=== PATIENT | male | born 1965 | race Caucasian/White ===

== ENCOUNTER → 2017-02-28 | Outpatient (CLI) | payer BC ==
--- NOTE | 2017-02-28 20:39 | CONS ---
DATE OF CONSULTATION: 02/28/2017 51-year-old gentleman has been evaluated in the sleep center for obstructive sleep apnea-hypopnea syndrome. CONSULTATION/NEW PATIENT EVALUATION HISTORY OF PRESENT ILLNESS/SLEEP-WAKE EVALUATION: Patient has been diagnosed with obstructive sleep apnea about 5 years ago, and at that time on treatment with BiPAP changed his weight down and up and present about 20 pounds more than 5 years ago. Recently developed some problem related to usage of BiPAP machine, which could be described as ( ) with the machine. He wakes up from sleep up to 2 times. Sometimes he has episodes nocturia. SLEEP SCHEDULE: His sleep schedule from about a midnight until 5 in the morning working days and on weekends schedule is about the same. FALLING ASLEEP: No problem with falling asleep. Sawyer Sleepiness Scale increased to 10. DURING SLEEP: DURING THE DAY/WAKE STATE: PAST MEDICAL HISTORY: Occasional back pain. PAST SURGICAL HISTORY: Bilateral heel surgery, right knee surgery, the right rotator cuff surgery. MEDICATIONS: None. SOCIAL HISTORY: Negative for smoking. Alcohol consumption occasional. REVIEW OF SYSTEMS: Difficulties to use BiPAP. No fevers. No double vision. No recent chest pain. No shortness of breath. No abdominal pain. No bleeding episodes. No blood in urine. No seizure episodes. FAMILY HISTORY: Heart problems, sleep apnea, diabetes. PHYSICAL EXAMINATION: During physical examination, gentleman without distress. VITAL SIGNS: BP 125/73, HR 62, RR 16. Height 5 feet 9, weight 269. BMI 39.7. Neck 17-1/4 inches in circumference. Temp is 98.4. Oxygen saturation room air 95%. HEENT: Oropharynx extremely low position of soft palate. NECK: Supple. No JVD. Thyroid is not palpable. LUNGS: Clear to percussion and to auscultation. Good air exchange. No wheezing or rhonchi. HEART: S1, S2 regular. No murmurs, gallops or rubs. ABDOMEN: Obese. Soft and nontender. Bowel sounds are present. No organomegaly appreciated. EXTREMITIES: No clubbing or cyanosis. REPRESENTATIVE: Awake, alert, and oriented x3. Cranial nerves 2 to 7 intact. There is no fasciculation or atrophy noted. No focal deficits observed. IMPRESSION: 1. Obstructive sleep apnea-hypopnea syndrome diagnosed about 5 years ago. The patient is on treatment with BiPAP, but has difficulties to use BiPAP equipment secondary to desynchronization with the machine. He also changed significantly since previous titration. 2. Obesity, body mass index of 39.7. 3. Status post bilateral heel study. 4. Status post right knee surgery. 5. Status post right rotator cuff surgery. PLAN: 1. CPAP BiPAP titration for re-evaluation of effective pressure at the present time. 2. Losing weight. 3. Sleep hygiene with regular time in bed for at least 8 hours. 4. No driving if feeling any sleepiness. Thank you very much for referring this patient for consultation. Sincerely, Petey Robles MD, PhD, FAASM. Diplomat of [employer], Sleep Medicine Board by [employer] [employer] Mobile Lounge Driver [facility] [place]
== END ==
LOC: SLEEP 16:55
PROVIDERS: ATTEND Internal Medicine
DX: G47.33 Obstructive sleep apnea (adult) (pediatric) (principal); E66.9 Obesity, unspecified; Z68.39 Body mass index [BMI] 39.0-39.9, adult; Z98.890 Other specified postprocedural states
CPT/HCPCS: 99211

== ENCOUNTER → 2019-02-18 | Outpatient (CLI) | payer BC ==
--- NOTE | 2019-02-18 17:49 | PN ---
PROGRESS NOTE DATE OF SERVICE: 02/18/2019 53-year-old gentleman who has been followed in the Sleep Center for treatment of obstructive sleep apnea-hypopnea syndrome. The patient successfully continues to use his BiPAP equipment every night for the whole night. No snoring with the machine. Bradford Sleepiness Scale today is 9. I checked his BiPAP unit. BiPAP pressure 11/7 cm of water. Usage is 100% of the night and 26/30 nights more than 4 hours for the last month. Average usage 5.5 hours per night. Leak is 16 L/minute which is borderline. Apnea-hypopnea index is only 1.3, which is totally perfect. MEDICATIONS: None. PHYSICAL EXAM: Patient in no distress. BP 137/85, HR 72, RR 16, height 5 feet 9 inches, weight 267 pounds. Body mass index 38.8, temperature 97.8, oxygen saturation at room air 94%. HEENT: Oropharynx low position of soft palate, Mallampati 3-4. NECK Supple, no JVD. Thyroid is not palpable. LUNGS Clear to percussion and to auscultation. Good air exchange. No wheezing or rhonchi. HEART S1, S2 regular. No murmurs, gallops, or rubs. ABDOMEN: Obese. Soft and nontender. Bowel sounds are present. No organomegaly appreciated. EXTREMITIES No clubbing or cyanosis. ASSIGNMENT MANAGER Awake, alert, and oriented X3. Cranial nerves 2 to 7 intact. There is no fasciculation or atrophy. noted. No focal deficits observed. IMPRESSION: 1. Obstructive sleep apnea-hypopnea syndrome. Patient demonstrated great compliance with treatment, benefitting from treatment. 2. Obesity. 3. Status post right rotator cuff surgery. PLAN: 1. Prescription for all necessary BiPAP supplies including mask, tube, filters. 2. Losing weight. 3. Sleep hygiene with regular time in bed for at least 7.5 to 8 hours. 4. No driving if feeling sleepiness. Thank you very much for allowing me to participate in management of your patient. Petey Robles MD, PhD, FAASM Diplomat of [employer] [employer] [employer] [facility] [place] MMODL / IJN: [id number] /
== END | disposition home or self-care (01) ==
LOC: SLEEP 15:55
PROVIDERS: ATTEND Internal Medicine
DX: G47.33 Obstructive sleep apnea (adult) (pediatric) (principal); E66.9 Obesity, unspecified; Z99.89 Dependence on other enabling machines and devices; Z98.890 Other specified postprocedural states; Z68.38 Body mass index [BMI] 38.0-38.9, adult